=== PATIENT | male | born 1945 | race Caucasian/White ===

== ENCOUNTER 2017-03-04 11:37 | Day surgery (SDC) | payer BC ==
[2017-03-02 10:39] LABS: HEMATOCRIT 38.7 % (40.0-51.0); HEMOGLOBIN 13.3 g/dL (13.6-17.8)
[2017-03-02 10:56] LABS: BUN (BLOOD UREA NITROGEN) 10 MG/DL (6-23); CALCIUM, SERUM 9.5 MG/DL (8.5-10.4); CHLORIDE, SERUM 107 MMOL/L (96-112); CO2 (CARBON DIOXIDE) 27 MMOL/L (24-34); GFR AFRICAN AMERICAN 88 ML/MIN (>=60); GFR NON AFRICAN AMERICAN 76 ML/MIN (>=60); GLUCOSE, SERUM 93 MG/DL (60-99); POTASSIUM, SERUM 4.4 MMOL/L (3.5-5.3); SODIUM, SERUM 140 MMOL/L (135-148)
--- NOTE | ~2017-03-04 | OP ---
Record Of Operation [facility] [address] [place]. [address] NAME: OPAL POWELL : 47 STATUS : [facility]#: [id number] AGE: 71 ADM/REG DATE : 03/04/17 MR#: [id number] REPORT SERV DATE: 03/04/17 DICTATED BY: AGUS HILLIARD III DATE: 03/04/17 REPORT STATUS : Draft TRANSCRIBED BY: MODL DATE: 03/04/17 DATE OF PROCEDURE: 03/04/2017 PREOPERATIVE DIAGNOSIS: Torn long head biceps tendon, left shoulder. POSTOPERATIVE DIAGNOSIS: Torn long head biceps tendon, left shoulder. SURGICAL PROCEDURE PERFORMED: Open tenodesis long head biceps tendon, left shoulder using the Arthrex tenodesis system. ALL AROUND GEAR MACHINE OPERATOR: Lindsey Lazar. ANESTHESIA: General. ANTIBIOTICS: Ancef 2 g. COMPLICATIONS: None. ESTIMATED BLOOD LOSS: 30 mL. CRYSTALLOID: 1500 mL. MEDICATIONS: Interscalene block for postoperative pain control. PROCEDURE IN DETAIL: The patient was brought to the operative room, placed on the table in supine position, and general anesthesia was induced. 2 g Ancef was administered intravenously in the operating room, an interscalene block was provided per Anesthesia Department for postoperative pain control. Left shoulder and upper extremity were entirely prepped and draped in the usual sterile fashion with a pneumonic arm gonsalez to the left upper extremity. Assuring good anesthesia and after a called time by the larry operator, a longitudinal incision was made below the bicipital groove about assisted between the biceps muscle, belly, and the bicipital groove. The incision was about 2.5 to 3 cm, dissection was carried down through the subcutaneous tissue, and dissection was carried medially to the long head of biceps tendon, and the biceps muscle belly. The stump of the biceps tendon could be palpated. It was grasped with an Allis clamp, abundant hematoma was encountered as well, and this was drained from around the muscle belly. The tendon was short, could not be pulled up to the bicipital groove, so, it was elected to do a tenodesis below the bicipital groove. The stump was trimmed to fit a 7.5 to 8 mm diameter hole. The Arthrex tenodesis system was opened and a web stitch was placed at the end of the long head of the biceps tendon. A guide wire was then drilled [id number] through the proximal humerus. This was over reamed with a 7.5 mm [place] reamer. An EndoButton was applied to the web stitch and passed the guide wire and a guide pin was removed, and the EndoButton was passed through both holes of the anterior-posterior of the humerus, and flipped and deployed on the posterior side of the humerus. This allowed tensioning of the sutures. I sucked the tendon down into the bone. An attempt was made to place an 8 mm x 12 mm interference screw, but it would not thread, so, it was elected not to put the tenodesis screw, one in the tendon was Record Of Operation [address] [place]. [address] NAME: OPAL POWELL : 47 STATUS : [facility] PAT#: [id number] AGE: 71 ADM/REG DATE : 03/04/17 MR#: [id number] REPORT SERV DATE: 03/04/17 DICTATED BY: AGUS HILLIARD III DATE: 03/04/17 REPORT STATUS : Draft TRANSCRIBED BY: JUAN DANIEL DATE: 03/04/17 weaved through the biceps tendon, and the sutures were tied down on themselves securing in the tendon in the drilled hole, very nice repair was achieved. Thorough irrigation was carried out. The subcutaneous tissue was closed with 2-0 Vicryl, and skin was closed using running 4-0 Monocryl. 10 mL of 0.5% Marcaine solution was injected into the wound for postoperative pain control. Benzoin and Steri-Strips were applied, followed by Aquacel dressing and a sling. The patient tolerated the procedure well and brought to recovery room in satisfactory condition. DONAVON/JUAN DANIEL Agus Hilliard III, M.D. / [id number] CC: Agus Hilliard III, M.D.
[~2017-03-04 11:37] MED LIST: ADVIL PO; IRON SUPPLEMENT; MULTIVITAMI1 PO; THERAPEUTIC PO; [UNRECOGNIZED DRUG - OTHER]
== END 2017-03-04 18:16 | disposition home or self-care (01) ==
LOC: SDC 11:37
PROVIDERS: Orthopaedic Surgery
PROC: 0LS40ZZ Reposition Left Upper Arm Tendon, Open Approach (ICD-10-PCS; principal; 2017-03-04 13:45)
DX: S46.112A Strain of muscle, fascia and tendon of long head of biceps, left arm, initial encounter (principal); D64.9 Anemia, unspecified; J30.2 Other seasonal allergic rhinitis; R06.02 Shortness of breath; R53.1 Weakness; R01.1 Cardiac murmur, unspecified; Z98.890 Other specified postprocedural states; Z98.41 Cataract extraction status, right eye; Z85.46 Personal history of malignant neoplasm of prostate; Z98.42 Cataract extraction status, left eye; Z96.1 Presence of intraocular lens; Z90.49 Acquired absence of other specified parts of digestive tract; Z92.3 Personal history of irradiation; Z91.013 Allergy to seafood; Z88.5 Allergy status to narcotic agent
CPT/HCPCS: 80048; 85014; 85018; 93005; C1713; J0690; J1030; J2250; J2274; J2370; J2710; J2795; J3010